=== PATIENT | male | born 1985 | race Caucasian/White ===

== ENCOUNTER 2023-12-15 06:56 | Inpatient (IN) | payer SELFPAY ==
[~2023-12-15] VITALS: Ht 165.1 cm; Wt 77.7 kg
[2023-12-15 07:00] VITALS: O2SAT 99
[2023-12-15] MEDS: SODIUM CHLORIDE 0.9% 1000ML BAG (SEPSIS BOLUS) IV ONE (07:15)
[2023-12-15] MEDS ORDERED: CEFTRIAXONE 1GM/50ML 50 ML IV ONE (07:15)
[2023-12-15] MEDS: VANCOMYCIN 1G PREMIX 200 ML IV ONE (07:15)
[2023-12-15 08:54] LABS: BASOPHILS % 0.6 % (0.0-2.0); EOSINOPHILS % 2.3 % (0.0-5.0); HEMATOCRIT. 41.9 % (42.0-52.0); HEMOGLOBIN. 14.4 g/dL (14.0-18.0); LYMPHOCYTES % 22.9 % (20.0-50.0); MEAN CORPUSCULAR HEMOGLOBIN 30.5 pg (28.0-32.0); MEAN CORPUSCULAR HGB CONC 34.3 g/dL (31.0-37.0); MEAN CORPUSCULAR VOLUME 88.7 fL (80.0-94.0); MONOCYTES % 10.7 % (2.0-8.0); NEUTROPHILS % 63.5 % (40.0-76.0); PLATELET 194 x1000/uL (130-400); RED BLOOD CELL COUNT 4.72 mill/uL (4.7-6.1); RED CELL DISTRIBUTION WIDTH 15.3 % (11.6-14.6); WHITE BLOOD COUNT 9.5 x1000/uL (4.5-11.0)
[2023-12-15 09:12] LABS: PROTHROMBIN TIME 11.1 sec (9.6-11.0)
[2023-12-15 09:16] LABS: ALANINE AMINOTRANSFERASE 18 IU/L (10-49); ALBUMIN 4.1 g/dL (3.2-4.8); ASPARTATE AMINOTRANSFERASE 15 IU/L (<34); BILIRUBIN TOTAL 0.4 mg/dL (0.1-1.0); CALCIUM 9.1 mg/dL (8.7-10.4); CARBON DIOXIDE 31 mEq/L (21-32); CHLORIDE 104 mEq/L (98-107); GLUCOSE 93 mg/dL (70-105); POTASSIUM 4.1 mEq/L (3.5-5.1); PROTEIN TOTAL 7.2 g/dL (6.0-8.3); SODIUM 140 mEq/L (136-145); UREA NITROGEN BLOOD 14 mg/dL (9-23)
[2023-12-15] MEDS: CEFTRIAXONE 1GM/50ML 50 ML IV NR (09:58)
[2023-12-15] MEDS ORDERED: DOCUSATE SODIUM 100MG CAPSULE PO PRN (11:45)
[2023-12-15] MEDS ORDERED: IPRATROPIUM/ALBUTEROL 0.5-3(2.5)MG/3ML NEB HHN PRN (11:45)
[2023-12-15] MEDS ORDERED: ACETAMINOPHEN 325MG TABLET PO PRN (11:45)
[2023-12-15 12:00] VITALS: BP 111/64; PULSE 73; RESP 18; TEMP 98.6
[2023-12-15] MEDS: SODIUM CHLORIDE 0.9% 1,000 ML IV SCH (15:23)
[2023-12-15 16:00] VITALS: BP_SYST 113; BP_SYST 122; BP_DIAS 74; BP_DIAS 75; PULSE 88; PULSE 90; RESP 19; RESP 20; TEMP 98.1
[2023-12-15] MEDS: KETOROLAC 15MG/ML VIAL IV PRN (16:41)
[2023-12-15 16:59] VITALS: BP 113/75; PULSE 90; RESP 19; TEMP 98.1
[2023-12-15 20:00] VITALS: BP 100/46; PULSE 73; RESP 20; TEMP 97.6
[2023-12-15 20:16] LABS: HEPATITIS A AB IGM NEGATIVE (Negative); HEPATITIS B CORE AB IGM NEGATIVE (Negative); HEPATITIS B SURFACE ANTIGEN NEGATIVE (Negative); HEPATITIS C AB NON REACTIVE (Neg) (Negative)
[2023-12-15] MEDS: FAMOTIDINE 20MG TABLET PO SCH (21:14)
[2023-12-16 00:09] VITALS: BP 101/61; PULSE 90; RESP 20; TEMP 97.4
[2023-12-16 04:00] VITALS: BP 109/76; PULSE 77; RESP 20; TEMP 97.2
[2023-12-16 07:05] LABS: BASOPHILS % 0.6 % (0.0-2.0); EOSINOPHILS % 2.8 % (0.0-5.0); HEMATOCRIT. 38.1 % (42.0-52.0); HEMOGLOBIN. 12.8 g/dL (14.0-18.0); LYMPHOCYTES % 29.2 % (20.0-50.0); MEAN CORPUSCULAR HEMOGLOBIN 30.3 pg (28.0-32.0); MEAN CORPUSCULAR HGB CONC 33.7 g/dL (31.0-37.0); MEAN CORPUSCULAR VOLUME 89.9 fL (80.0-94.0); MEAN PLATELET VOLUME 7.9 fl (7.4-10.4); MONOCYTES % 9.6 % (2.0-8.0); NEUTROPHILS % 57.8 % (40.0-76.0); PLATELET 187 x1000/uL (130-400); RED BLOOD CELL COUNT 4.23 mill/uL (4.7-6.1)
[2023-12-16 07:35] LABS: ALANINE AMINOTRANSFERASE 14 IU/L (10-49); ALBUMIN 3.6 g/dL (3.2-4.8); ASPARTATE AMINOTRANSFERASE 13 IU/L (<34); BILIRUBIN TOTAL 0.3 mg/dL (0.1-1.0); CALCIUM 8.7 mg/dL (8.7-10.4); CARBON DIOXIDE 26 mEq/L (21-32); CHLORIDE 108 mEq/L (98-107); CHOLESTEROL 118 mg/dL (<200); GLUCOSE 112 mg/dL (70-105); HDL CHOLESTEROL 30 mg/dL (>55); LDL CHOLESTEROL 64 mg/dL (5-100); POTASSIUM 4.1 mEq/L (3.5-5.1); PROTEIN TOTAL 6.2 g/dL (6.0-8.3); SODIUM 140 mEq/L (136-145); T4 FREE 0.99 ng/dL (0.89-1.76); THYROID STIMULATING HORMONE 1.36 uIU/mL (0.55-4.78); TRIGLYCERIDE 138 mg/dL (0-150); UREA NITROGEN BLOOD 9 mg/dL (9-23)
[2023-12-16 08:00] VITALS: BP 110/60; PULSE 80; RESP 20; TEMP 98
[2023-12-16] MEDS ORDERED: CEFTRIAXONE 2GM/50ML 50 ML IV SCH ×2 (09:00→10:00)
[2023-12-16 12:00] VITALS: BP 105/54; PULSE 93; RESP 20; TEMP 98.1
[2023-12-16] MEDS: VANCOMYCIN 1.5GM/250ML IV SCH (13:36)
[2023-12-16 16:00] VITALS: BP 107/52; PULSE 91; RESP 20; TEMP 98.1
[2023-12-16] MEDS ORDERED: VANCOMYCIN 1GM/200ML PMX (BAXTER) IV SCH (23:30)
== END 2023-12-16 21:51 | disposition left against medical advice (07) | DRG 383 ==
LOC: ER 06:56 → EDBEDREQSVC 10:15 → EDBEDREQ 10:15 → 4WST 10:25 → EDBEDREQTM 10:26 → EDBEDREQ 10:26
PROVIDERS: ADMIT Internal Medicine; ATTEND Internal Medicine
DX: L03.116 Cellulitis of left lower limb (principal); E11.9 Type 2 diabetes mellitus without complications; E78.5 Hyperlipidemia, unspecified; J45.909 Unspecified asthma, uncomplicated; Z53.29 Procedure and treatment not carried out because of patient's decision for other reasons; Z87.891 Personal history of nicotine dependence
CPT/HCPCS: 36415; 71045; 73562; 80053; 80061; 83036; 83605; 84145; 84439; 84443; 85025; 86705; 86709; 87340; 93005; 93970; 97162; 99291; J0696; J1885; J3370; J7030